=== PATIENT | female | born 1960 | race Caucasian/White ===

== ENCOUNTER 2018-07-24 13:58 | Emergency (ER) | payer MEDICARE, MEDICAID ==
--- NOTE | 2018-07-24 14:16 | ED ---
Head Injury - HPI Summary HPI Summary: Patient is a 57 y/o female brought in by EMS who presents to the ED s/p head injury. Today she was taking a shower when she slipped and fell about one foot. She hit the back of her head on the wall. Patient denies any bleeding or LOC. Patient has cerebral palsy so normally crawls in and out of the shower. She now c/o pain to the back of her head, rated a 7/10 in severity. Patient denies any back pain, neck pain, arm pain, or hip pain. - History Of Current Complaint Chief Complaint: EDFall Stated Complaint: FALLS PER EMS Time Seen by Provider: 07/24/18 14:05 Hx Obtained From: Patient, EMS Mechanism Of Injury: Fall From Height Of: - 1 foot Onset/Duration: Started Hours Ago - [employer], Still Present Onset of Pain: Immediate Severity Currently: Moderate Pain Intensity: 7 Pain Scale Used: 0-10 Numeric Location of Head Injury: Occipital Associated Signs And Symptoms: Negative - Allergies/Home Medications Allergies/Adverse Reactions: Allergies Allergy/AdvReac Type Severity Reaction Status Date / Time No Known Allergies Allergy Verified 06/27/15 14:48 Home Medications: Home Medications Aspirin 81 mg CHEW TAB* 81 mg PO DAILY 07/24/18 [History Confirmed 07/24/18] PMH/Surg Hx/FS Hx/Imm Hx Cardiovascular History: Reports: Hx Hypertension Denies: Hx Pacemaker/ICD Musculoskeletal History: Reports: Other Musculoskeletal History - Cerebral Palsy Sensory History: Reports: Hx Contacts or Glasses Denies: Hx Hearing Aid Opthamlomology History: Reports: Hx Contacts or Glasses Neurological History: Reports: Hx Developmental Delay - Works at [employer] Psychiatric History: Reports: Hx Depression, Hx Community Mental Health Tx Denies: Hx Eating Disorder, Hx Panic Disorder, Hx of Violent Episodes Against Others - Cancer History Hx Chemotherapy: No Hx Radiation Therapy: No - Surgical History Surgery Procedure, Year, and Place: BREAST REDUCTION IN 1989; TUBAL LIGATION IN ; HYSTERECTOMY Infectious Disease History: No Infectious Disease History: Denies: Traveled Outside the [place] in Last 30 Days - Family History Known Family History: Negative: Blood Disorder - Social History Alcohol Use: None Hx Substance Use: No Substance Use Type: Reports: None Hx Tobacco Use: No Smoking Status (MU): Never Smoked Tobacco Review of Systems Positive: Myalgia - back of head. Negative: Arthralgia - hip, Other - back pain , neck pain, arm pain Negative: Other - bleeding Neurological: Other - NEGATIVE: LOC All Other Systems Reviewed And Are Negative: Yes Physical Exam - Summary Physical Exam Summary: VITAL SIGNS: Reviewed. GENERAL: Patient is a well-developed and nourished FEMALE who is lying comfortable in the stretcher.Patient is not in any acute respiratory distress. HEAD AND FACE: No signs of trauma. No ecchymosis, hematomas or skull depressions. No sinus tenderness. Tenderness to palpation of occipital area. No lacerations or swelling. EYES: PERRLA, EOMI x 2, No injected conjunctiva, no nystagmus. No photophobia. EARS: Hearing grossly intact. Ear canals and tympanic membranes are within normal limits. MOUTH: Oropharynx within normal limits. NECK: Supple, trachea is midline, no adenopathy, no JVD, no carotid bruit, no c- spine tenderness, neck with full ROM. No meningeal signs, no Kernig's or brudzinskis signs. CHEST: Symmetric, no tenderness at palpation LUNGS: Clear to auscultation bilaterally. No wheezing or crackles. CVS: Regular rate and rhythm, S1 and S2 present, no murmurs or gallops appreciated. ABDOMEN: Soft, non-tender. No signs of distention. No rebound no guarding, and no masses palpated. Bowel sounds are normal. EXTREMITIES: FROM in all major joints, no edema, no cyanosis or clubbing. NEURO: Alert and oriented x 3. No acute neurological deficits. Speech is normal and follows commands. Decreased Rom from the waist down secondary to cerebral palsy. SKIN: Dry and warm GCS: 15 Triage Information Reviewed: Yes Vital Signs On Initial Exam: Initial Vitals Temp Pulse Resp BP Pulse Ox 98.1 F 65 16 114/67 100 07/24/18 14:01 07/24/18 14:01 07/24/18 14:01 07/24/18 14:01 07/24/18 14:01 Vital Signs Reviewed: Yes Diagnostics - Vital Signs Vital Signs Temp Pulse Resp BP Pulse Ox 07/24/18 14:01 98.1 F 65 16 114/67 100 - Laboratory Lab Statement: Any lab studies that have been ordered have been reviewed, and results considered in the medical decision making process. - CT Brain CT CT Interpretation Completed By: Radiologist Summary of CT Findings: NO ACUTE INTRACRANIAL PATHOLOGY. ED physician reviewed radiology report. Head Injury Course/Dx Assessment/Plan: Patient is a 57-year-old female who presents to the emergency room with a chief complaint of an accidental fall and head contusion. Head CT impression: No acute intracranial pathology. The patient is alert and oriented 3, the patient doesnt have any neck pain and she has no other complaints. Therefore the patient will be discharged home with follow-up with primary care physician. The patient is hemodynamically stable alert and oriented 3. - Diagnoses Differential Diagnosis/HQI/PQRI: Cerebral Contusion, Concussion Without LOC, Hematoma Provider Diagnoses: Head contusion Discharge - Sign-Out/Discharge Documenting (check all that apply): Patient Departure - Discharge Patient Received Moderate/Deep Sedation with Procedure: No - Discharge Plan Condition: Improved Disposition: HOME Patient Education Materials: Head Injury (ED) Referrals: Bernarda Alexandra MD [Primary Care Provider] - 3 Days Additional Instructions: RETURN TO THE ED FOR ANY WORSENING OR NEW SYMPTOMS. - Billing Disposition and Condition Condition: IMPROVED Disposition: Home - Attestation Statements Document Initiated by Scribe: Yes Documenting Scribe: Roxi Diaz Provider For Whom Scribe is Documenting (Include Credential): Dayton Singh MD Scribe Attestation: Roxi Cabrera scribed for Dayton Singh MD on 07/26/18 at 2134. Scribe Documentation Reviewed: Yes Provider Attestation: The documentation as recorded by the Roxi buckley accurately reflects the service I personally performed and the decisions made by fl, Dayton Singh MD Status of Scribe Document: Viewed
[2018-07-24 16:42] VITALS: BP 126/70
== END 2018-07-24 16:41 | disposition home or self-care (01) ==
LOC: ED 13:58
DX: S00.93XA Contusion of unspecified part of head, initial encounter (principal); W18.2XXA Fall in (into) shower or empty bathtub, initial encounter; Y93.E1 Activity, personal bathing and showering; Y92.002 Bathroom of unspecified non-institutional (private) residence as the place of occurrence of the external cause; G80.9 Cerebral palsy, unspecified; R62.50 Unspecified lack of expected normal physiological development in childhood; F32.9 Major depressive disorder, single episode, unspecified
CPT/HCPCS: 70450; 99281